=== PATIENT | male | born 1950 | race Caucasian/White ===

== ENCOUNTER 2016-04-06 14:20 | Emergency (ER) | payer OTHER, MEDICARE ==
[~2016-04-06] VITALS: Ht 182.9 cm; Wt 90.7 kg
[~2016-04-06 14:20] MED LIST: A/B OTIC 54 MG/15 ML AD; ASPIRIN EC81 M1 PO; ATORVASTATIN CA40 MG PO; AUGMENTIN 875875 MG PO; BENTYL10 M1 PO; BENTYL20 M1 PO; BUFFERIN LOW DO81 MG PO; CARAFATE 1GM1000 MG PO; CARAFATE1 G1 PO; CARAFATE1 GM/10 M1 PO; CIPRODEX 0.3%-7.5 ML OTIC; DEXAMETHAS0.5 MG/52 AD; DONNATAL TABL16.2 MG PO; FLONASE120 SPRAY/ NASB; GI COCKTAIL PO; GLYBURIDE5 M1 PO; GLYBURIDE5 MG PO; HYDROCODON-ACE1 EAC3 PO; HYDROCODONE/ACE1 TA1 PO; LEVSIN/SL0.125 MG SL; LEVSIN0.125 M1 PO; LIDOCAINE HCL PO; LIPITOR20 M2 PO; LIPITOR40 M1 PO; LISINOPRIL40 M1 PO; MAALOX PO; METOPROLOL SUCC50 M2 PO; NEURONTIN100 M1 PO; OMEPRAZOLE40 M1 PO; OMEPRAZOLE40 MG PO; OXYCODONE5 M1 PO; OXYCODONE5 MG PO; PLAVIX 75MG TAB75 MG PO; PLAVIX75 M1 PO; PRINIVIL40 MG PO; REGLAN10 MG PO; TOPROL XL 25MG25 MG PO; TOPROL XL 50MG50 MG PO; TOPROL XL25 M1 PO; ZANTAC 150MG150 MG PO; ZANTAC150 M1 PO; [UNRECOGNIZED DRUG - OTHER] PO; lisinipril PO
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
[2016-04-06 15:02] LABS: ABSOLUTE BASOPHIL COUNT 0 /CUMM (0.0-0.2); ABSOLUTE EOSINOPHIL COUNT 0 /CUMM (0.0-0.7); ABSOLUTE GRANULOCYTE CT 3.5 /CUMM (1.4-6.5); ABSOLUTE LYMPH COUNT 1.6 /CUMM (1.2-3.4); ABSOLUTE MONOCYTE COUNT 0.6 /CUMM (0.10-0.60); BASOPHIL % 0.5 % (0.0-2.0); EOSINOPHIL % 0.9 % (0-5); GRANULOCYTE % 60.9 % (42.2-75.2); HEMATOCRIT 42.4 % (42-52); MEAN CORPUSCULAR HGB 29.4 PG (27.0-31.0); MEAN CORPUSCULAR HGB CONC 34.1 G/DL (33.0-37.0); MEAN CORPUSCULAR VOLUME 86.1 FL (80.0-94.0); MEAN PLATELET VOLUME 8.5 FL (7.4-10.4); PLATELET COUNT 139 /CUMM (130-400); RBC DISTRIBUTION WIDTH 14.4 % (11.5-14.5); RED BLOOD CELL CT 4.92 /CUMM (4.70-6.10); WHITE BLOOD CELL COUNT 5.7 /CUMM (4.8-10.8)
--- NOTE | 2016-04-06 15:13 | RADIOLOGY REPORT ---
EXAMINATION: XR ABDOMEN MULTIPLE VIEWS CLINICAL INDICATION: Abdominal pain. Shortness of breath. COMPARISON: CT of the abdomen and pelvis on 11/25/2015. TECHNIQUE: AP supine and erect views of the abdomen. FINDINGS: There is no evidence of free air or obstruction. Air is seen throughout a nondistended colon. Scattered air is seen in the small intestine. The gallbladder has been surgically removed. Arterial vascular calcifications are present in the pelvis. IMPRESSION: No evidence of obstruction or free air.
[2016-04-06] MEDS ORDERED: BENTYL10 M1 PO (16:47)
[2016-04-06 16:56] VITALS: BP 156/85
== END 2016-04-06 17:20 ==
LOC: ERH 14:20
PROVIDERS: Physician Assistant Medical
DX: R10.84 Generalized abdominal pain (principal)
CPT/HCPCS: 74020; 93005; 93010; 96374; 96375; J2405

== ENCOUNTER 2016-05-12 07:14 | Emergency (ER) | payer OTHER, MEDICARE ==
[~2016-05-12] VITALS: Ht 182.9 cm; Wt 90.7 kg
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
[2016-05-12 09:09] LABS: ABSOLUTE BASOPHIL COUNT 0 /CUMM (0.0-0.2); ABSOLUTE EOSINOPHIL COUNT 0.1 /CUMM (0.0-0.7); ABSOLUTE LYMPH COUNT 1.3 /CUMM (1.2-3.4); ABSOLUTE MONOCYTE COUNT 0.4 /CUMM (0.10-0.60); BASOPHIL % 0.4 % (0.0-2.0); EOSINOPHIL % 1.5 % (0-5); GRANULOCYTE % 62.9 % (42.2-75.2); HEMATOCRIT 41.5 % (42-52); MEAN CORPUSCULAR HGB 29.5 PG (27.0-31.0); MEAN CORPUSCULAR HGB CONC 34.5 G/DL (33.0-37.0); MEAN CORPUSCULAR VOLUME 85.5 FL (80.0-94.0); MEAN PLATELET VOLUME 8.9 FL (7.4-10.4); PLATELET COUNT 128 /CUMM (130-400); RBC DISTRIBUTION WIDTH 13.5 % (11.5-14.5); RED BLOOD CELL CT 4.86 /CUMM (4.70-6.10); WHITE BLOOD CELL COUNT 4.8 /CUMM (4.8-10.8)
--- NOTE | 2016-05-12 10:28 | CT SCAN REPORT ---
EXAMINATION: CT ABDOMEN AND PELVIS WITH CONTRAST CLINICAL INFORMATION: Abdominal pain. COMPARISON: 11/25/2015 and 09/10/2015, 05/05/2015, 08/19/2014, 12/31/2013, 11/23/2013, 02/15/2012, and 07/26/2010. TECHNIQUE: Multidetector volumetric imaging was performed of the abdomen and pelvis before and after the IV administration of 95 mL of Omnipaque 300 intravenous contrast. Sagittal and coronal reformatted images were obtained on the technologist's workstation. DLP: 775.08 mGy-cm. FINDINGS: LUNG BASES: The visualized lung bases are unremarkable. LIVER, GALLBLADDER, AND BILIARY TREE: The liver is normal in size, shape, and attenuation. No focal hepatic lesion or biliary ductal dilatation is present. Patient status post cholecystectomy. PANCREAS: Unremarkable. SPLEEN: Unremarkable. ADRENAL GLANDS: Unremarkable. KIDNEYS AND URETERS: The right kidney is normal in size, shape, and attenuation. No hydronephrosis, hydroureter, or calculi seen. No perinephric stranding. Left kidney is absent. BLADDER: Unremarkable. GASTROINTESTINAL TRACT: Diverticular changes are present in the colon without evidence of diverticulitis. The appendix is normal. There is no evidence of bowel obstruction. ABDOMINAL WALL: No significant hernia is appreciated. LYMPH NODES: Normal. VASCULAR: Unremarkable. PELVIC VISCERA: Prostate and seminal vesicles are unremarkable. OSSEOUS STRUCTURES: Degenerative changes noted in the lower thoracic spine as well as at L5-S1. IMPRESSION: Sigmoid diverticulae are noted. There has been no significant interval change since the last [address] scans dating back to 2010.
[2016-05-12 12:01] VITALS: BP 178/90
== END 2016-05-12 12:12 ==
LOC: ERH 07:14
PROVIDERS: Emergency Medicine
DX: R10.33 Periumbilical pain (principal)
CPT/HCPCS: 74177; 93005; 93010; 96360; 96361

== ENCOUNTER 2016-07-06 08:56 | Emergency (ER) | payer OTHER, MEDICARE ==
[~2016-07-06] VITALS: Ht 182.9 cm; Wt 90.7 kg
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
[2016-07-06 09:55] LABS: ABSOLUTE BASOPHIL COUNT 0 /CUMM (0.0-0.2); ABSOLUTE EOSINOPHIL COUNT 0.2 /CUMM (0.0-0.7); ABSOLUTE GRANULOCYTE CT 3.2 /CUMM (1.4-6.5); ABSOLUTE LYMPH COUNT 1.1 /CUMM (1.2-3.4); ABSOLUTE MONOCYTE COUNT 0.4 /CUMM (0.10-0.60); BASOPHIL % 0.4 % (0.0-2.0); EOSINOPHIL % 3.1 % (0-5); GRANULOCYTE % 66.5 % (42.2-75.2); HEMATOCRIT 43.2 % (42-52); MEAN CORPUSCULAR HGB 28.4 PG (27.0-31.0); MEAN CORPUSCULAR HGB CONC 33.1 G/DL (33.0-37.0); MEAN CORPUSCULAR VOLUME 85.9 FL (80.0-94.0); MEAN PLATELET VOLUME 8.5 FL (7.4-10.4); PLATELET COUNT 140 /CUMM (130-400); RED BLOOD CELL CT 5.03 /CUMM (4.70-6.10); WHITE BLOOD CELL COUNT 4.9 /CUMM (4.8-10.8)
--- NOTE | 2016-07-06 10:34 | RADIOLOGY REPORT ---
EXAMINATION: XR CERVICAL SPINE CLINICAL INFORMATION: Right-sided neck pain. COMPARISON: None TECHNIQUE: Cervical spine, 4 views FINDINGS: The cervical vertebra have normal height and alignment. No fracture, subluxation or prevertebral soft tissue swelling. The dens is intact. At C4-C5, anterior traction osteophyte formation is noted and there is minimal narrowing of disc space. At C5-C6 and C6-C7, there is moderate disc space narrowing and traction osteophyte formation. The uncovertebral joints are hypertrophied at C5-C6. The visualized lung apices are normal. IMPRESSION: 1. Moderate disc degenerative change at C5-C6 and C6-C7. 2. There is bilateral uncovertebral joint hypertrophy at C5-C6. 3. No acute fracture or malalignment.
[2016-07-06 10:57] VITALS: BP 164/86
[2016-07-06] MEDS ORDERED: CYCLOBENZAPRINE10 M1 PO (11:02)
== END 2016-07-06 11:07 ==
LOC: ERH 08:56
PROVIDERS: Physician Assistant Medical
DX: S16.1XXA Strain of muscle, fascia and tendon at neck level, initial encounter (principal)
CPT/HCPCS: 72040; 93005; 93010

== ENCOUNTER 2016-08-08 09:24 | Emergency (ER) | payer OTHER, MEDICARE ==
[~2016-08-08 09:24] MED LIST changes: +CYCLOBENZAPRINE10 M1 PO
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
--- NOTE | 2016-08-08 10:56 | RADIOLOGY REPORT ---
EXAMINATION: XR ABDOMEN WITH PA CHEST CLINICAL INDICATION: Diffuse abdominal pain. Evaluate bowel obstruction. COMPARISON: CT abdomen pelvis from 05/12/2016 TECHNIQUE: Chest, AP view Abdomen, 2 views FINDINGS: CHEST: Lungs are well expanded and clear. No pleural effusion. Cardiac silhouette is normal in size. The descending thoracic aorta is tortuous. The visualized bones are intact. No pneumoperitoneum. ABDOMEN: Cholecystectomy clips in the right upper quadrant. Within the left mid and upper abdomen, small bowel is dilated up to 3.8 cm and there are scattered air-fluid levels within small bowel. No evidence of pneumatosis intestinalis or pneumoperitoneum. Bowel gas is seen within the colon to level the rectum. Peripheral vascular calcifications are seen. No suspicious bone lesions. IMPRESSION: 1. No acute cardiopulmonary disease. 2. Findings suggestive of moderate, likely incomplete small bowel obstruction. No pneumoperitoneum.
[2016-08-08 11:12] LABS: ABSOLUTE BASOPHIL COUNT 0 /CUMM (0.0-0.2); ABSOLUTE EOSINOPHIL COUNT 0.1 /CUMM (0.0-0.7); ABSOLUTE GRANULOCYTE CT 3.5 /CUMM (1.4-6.5); ABSOLUTE LYMPH COUNT 1.4 /CUMM (1.2-3.4); ABSOLUTE MONOCYTE COUNT 0.5 /CUMM (0.10-0.60); BASOPHIL % 0.3 % (0.0-2.0); EOSINOPHIL % 1.1 % (0-5); GRANULOCYTE % 64.3 % (42.2-75.2); HEMATOCRIT 42.9 % (42-52); MEAN CORPUSCULAR HGB 28.9 PG (27.0-31.0); MEAN CORPUSCULAR HGB CONC 33.5 G/DL (33.0-37.0); MEAN CORPUSCULAR VOLUME 86.3 FL (80.0-94.0); MEAN PLATELET VOLUME 9.2 FL (7.4-10.4); PLATELET COUNT 134 /CUMM (130-400); RBC DISTRIBUTION WIDTH 14.1 % (11.5-14.5); RED BLOOD CELL CT 4.97 /CUMM (4.70-6.10); WHITE BLOOD CELL COUNT 5.4 /CUMM (4.8-10.8)
--- NOTE | 2016-08-08 13:31 | CT SCAN REPORT ---
EXAMINATION: CT ABDOMEN AND PELVIS WITHOUT CONTRAST CLINICAL INFORMATION: Abdominal pain. Abnormal XR. Question presence of small bowel obstruction. COMPARISON: Abdomen CT from 05/12/2016. TECHNIQUE: Multidetector volumetric imaging was performed from the superior aspect of the liver through the pubic symphysis. Sagittal and coronal reformatted images were obtained on the technologist's workstation. DLP: 554 mGy-cm FINDINGS: LUNG BASES: No acute findings in the lung bases compared to 05/12/2016. Coronary arteries are calcified. There appears to be a stent within the calcified left anterior descending coronary artery. No pericardial or pleural effusion. LIVER, GALLBLADDER, AND BILIARY TREE: Liver has normal size, contour and attenuation. Gallbladder surgically absent. No intrahepatic bile duct dilatation. No perihepatic fluid. PANCREAS: Unremarkable. SPLEEN: Unremarkable. ADRENAL GLANDS: Unremarkable. KIDNEYS AND URETERS: Left kidney is absent. The right kidney has normal size, cortical thickness and attenuation. No nephrolithiasis or hydroureteronephrosis. BLADDER: Unremarkable. GASTROINTESTINAL TRACT: Stomach is unremarkable. Within the left abdomen, small bowel is mildly distended with fluid and gas and measures up to 3 cm diameter. The mid and distal small bowel appear collapsed to level of the ileocecal junction. There is no focal transition point identified on these images acquired without enteric contrast. No inflammation in the mesentery. No evidence of pneumatosis intestinalis or pneumoperitoneum. Mild diverticulosis of the sigmoid colon without diverticulitis. The appendix is normal. ABDOMINAL WALL: No abdominal wall mass or hernia. LYMPH NODES: No pathologic sized lymph nodes within the abdomen or pelvis. VASCULAR: Atherosclerotic calcification of the abdominal aorta without aneurysm. No retroperitoneal hematoma. PELVIC VISCERA: Prostate gland is normal in size. No pelvic free fluid. No iliac lymphadenopathy. OSSEOUS STRUCTURES: No aggressive bone lesions. Degenerative disc disease at T10-T11 and L5-S1. IMPRESSION: 1. Within the left abdomen, small bowel is mildly distended with fluid and gas and measures up to 3 cm diameter. The mid and distal small bowel are decompressed. This is suggestive of a relatively early or mild small bowel obstruction. A well-defined, focal transition point is not detected. There is mild sigmoid colon diverticulosis without diverticulitis. Appendix is normal. 2. The solitary right kidney is normal. No urolithiasis or urinary tract obstruction..
[2016-08-08] MEDS ORDERED: LEVSIN0.125 M1 PO (15:20)
[2016-08-08 15:22] VITALS: BP 162/72
== END 2016-08-08 15:26 ==
LOC: ERH 09:24
PROVIDERS: Emergency Medicine
DX: K52.9 Noninfective gastroenteritis and colitis, unspecified (principal)
CPT/HCPCS: 74022; 74176; 93005; 93010

== ENCOUNTER 2016-09-05 09:05 | Emergency (ER) | payer OTHER, MEDICARE ==
[~2016-09-05] VITALS: Ht 182.9 cm; Wt 90.7 kg
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
[2016-09-05 09:58] LABS: ABSOLUTE BASOPHIL COUNT 0 /CUMM (0.0-0.2); ABSOLUTE EOSINOPHIL COUNT 0.1 /CUMM (0.0-0.7); ABSOLUTE GRANULOCYTE CT 3.1 /CUMM (1.4-6.5); ABSOLUTE MONOCYTE COUNT 0.4 /CUMM (0.10-0.60); BASOPHIL % 0.3 % (0.0-2.0); EOSINOPHIL % 2.4 % (0-5); GRANULOCYTE % 67.2 % (42.2-75.2); HEMATOCRIT 41.8 % (42-52); MEAN CORPUSCULAR HGB 28.6 PG (27.0-31.0); MEAN CORPUSCULAR HGB CONC 33.1 G/DL (33.0-37.0); MEAN CORPUSCULAR VOLUME 86.4 FL (80.0-94.0); MEAN PLATELET VOLUME 8.6 FL (7.4-10.4); PLATELET COUNT 140 /CUMM (130-400); RBC DISTRIBUTION WIDTH 14.5 % (11.5-14.5); RED BLOOD CELL CT 4.84 /CUMM (4.70-6.10); WHITE BLOOD CELL COUNT 4.7 /CUMM (4.8-10.8)
--- NOTE | 2016-09-05 10:42 | RADIOLOGY REPORT ---
EXAMINATION: XR ABDOMEN MULTIPLE VIEWS CLINICAL INDICATION: Abdominal pain with lack of bowel movement in 3 days. Evaluate for constipation or small bowel obstruction. COMPARISON: CT images of abdomen pelvis from 08/08/2016 TECHNIQUE: Abdomen radiographs, 2 views FINDINGS: Lung bases are unremarkable. Cholecystectomy clips in the right upper quadrant of the abdomen. Small bowel is mildly dilated and has scattered air-fluid levels; this is similar in appearance compared to the findings on the abdomen CT of 08/08/2016. The pattern suggests possibility of mild small bowel obstruction. No pneumoperitoneum. Moderate amount of stool is present within the colon. There is gas identified within the sigmoid colon. No acute osseous abnormality. IMPRESSION: Bowel gas pattern is abnormal. The findings are similar to those observed on the recent abdomen CT of 08/08/2016 and suggest possibility of a mild small bowel obstruction.
--- NOTE | 2016-09-05 14:24 | CT SCAN REPORT ---
EXAMINATION: CT ABDOMEN AND PELVIS WITH CONTRAST CLINICAL INFORMATION: Abdominal pain for months. Recent imaging suspicious for partial small bowel destruction. COMPARISON: KUB 09/05/2016, CT abdomen and pelvis without contrast 08/08/2016, CT abdomen and pelvis with contrast 05/12/2016. TECHNIQUE: Multidetector volumetric imaging was performed of the abdomen and pelvis using oral contrast and 95 mL Optiray 320 intravenous contrast. Sagittal and coronal reformatted images were obtained on the technologist's workstation. DLP: 758 mGy-cm FINDINGS: LUNG BASES: No airspace consolidation or effusion. LIVER, GALLBLADDER, AND BILIARY TREE: The liver is normal in size and smooth in contour. There is mild hepatic steatosis. No focal hepatic parenchymal lesion or intrahepatic biliary ductal dilatation. Prior cholecystectomy. Common duct unremarkable. PANCREAS: Borderline atrophic. No pancreatic ductal distention or peripancreatic inflammatory changes. SPLEEN: Normal. Incidental two subcentimeter splenules left upper quadrant. ADRENAL GLANDS: Mild fullness right adrenal stable. No adrenal nodule. Left adrenal unremarkable. KIDNEYS AND URETERS: Left kidney absent. Right kidney normal in size and smooth in contour. No hydronephrosis, hydroureter, perinephric stranding, or right urinary tract calculi. BLADDER: Unremarkable. GASTROINTESTINAL TRACT: There is no bowel obstruction or inflammatory changes in the bowel or mesentery. There is no small bowel dilatation or wall thickening. The appendix is normal. No pneumatosis or free air. No ascites or fluid collection ABDOMINAL WALL: No significant hernia is appreciated. LYMPH NODES: No lymphadenopathy. VASCULAR: Coronary stent. PELVIC VISCERA: Unremarkable. OSSEOUS STRUCTURES: Unremarkable. IMPRESSION: 1. No bowel obstruction or inflammatory changes in the abdomen or pelvis. Normal appendix. 2. Mild hepatic steatosis. Prior cholecystectomy. No ductal dilatation. 3. Left kidney absent. Right urinary tract unremarkable.
[2016-09-05 14:34] VITALS: BP 158/90
[2016-09-05] MEDS ORDERED: LEVSIN0.125 M1 PO (14:37)
== END 2016-09-05 14:58 ==
LOC: ERH 09:05
PROVIDERS: Physician Assistant
DX: I10 Essential (primary) hypertension (principal); R10.84 Generalized abdominal pain
CPT/HCPCS: 74020; 74177; 81001; 96374

== ENCOUNTER 2017-05-23 12:30 | Emergency (ER) | payer OTHER, MEDICARE ==
[~2017-05-23] VITALS: Ht 182.9 cm; Wt 90.7 kg
[~2017-05-23 12:30] MED LIST changes: +LIDOCAINE HCL V15 ML PO; +MOBIC15 M1 PO; +OXYCODONE HCL15 M1 PO; +PEPCID20 M1 PO; +ZOFRAN ODT4 M1 SL
[2017-05-23 13:02] VITALS: BP 149/78
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
[2017-05-23 15:00] LABS: ABSOLUTE BASOPHIL COUNT 0 /CUMM (0.0-0.2); ABSOLUTE EOSINOPHIL COUNT 0.1 /CUMM (0.0-0.7); ABSOLUTE GRANULOCYTE CT 2.8 /CUMM (1.4-6.5); ABSOLUTE LYMPH COUNT 2.1 /CUMM (1.2-3.4); ABSOLUTE MONOCYTE COUNT 0.6 /CUMM (0.10-0.60); BASOPHIL % 0.5 % (0.0-2.0); EOSINOPHIL % 1.5 % (0-5); GRANULOCYTE % 50.3 % (42.2-75.2); HEMATOCRIT 37.8 % (42-52); MEAN CORPUSCULAR HGB 24.9 PG (27.0-31.0); MEAN CORPUSCULAR HGB CONC 32.4 G/DL (33.0-37.0); MEAN CORPUSCULAR VOLUME 76.8 FL (80.0-94.0); PLATELET COUNT 169 /CUMM (130-400); RBC DISTRIBUTION WIDTH 16.5 % (11.5-14.5); RED BLOOD CELL CT 4.92 /CUMM (4.70-6.10); WHITE BLOOD CELL COUNT 5.6 /CUMM (4.8-10.8)
[2017-05-23] MEDS ORDERED: DICYCLOMINE HCL10 M1 PO (16:12)
[2017-05-23] MEDS ORDERED: MELOXICAM15 M1 PO (16:12)
== END 2017-05-23 16:33 ==
LOC: ERH 12:30
PROVIDERS: Physician Assistant
DX: R10.9 Unspecified abdominal pain (principal)
CPT/HCPCS: 81001; 93005; 93010

== ENCOUNTER 2017-09-05 11:41 | Emergency (ER) | payer OTHER, MEDICARE ==
[~2017-09-05] VITALS: Ht 182.9 cm; Wt 90.7 kg
[~2017-09-05 11:41] MED LIST changes: +DICYCLOMINE HCL10 M1 PO; +MELOXICAM15 M1 PO
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
[2017-09-05 12:13] LABS: ABSOLUTE BASOPHIL COUNT 0 /CUMM (0.0-0.2); ABSOLUTE EOSINOPHIL COUNT 0.1 /CUMM (0.0-0.7); ABSOLUTE GRANULOCYTE CT 3.1 /CUMM (1.4-6.5); ABSOLUTE LYMPH COUNT 1.7 /CUMM (1.2-3.4); ABSOLUTE MONOCYTE COUNT 0.4 /CUMM (0.10-0.60); BASOPHIL % 0.5 % (0.0-2.0); HEMATOCRIT 40.3 % (42-52); MEAN CORPUSCULAR HGB 26.6 PG (27.0-31.0); MEAN CORPUSCULAR HGB CONC 33.3 G/DL (33.0-37.0); MEAN CORPUSCULAR VOLUME 80.1 FL (80.0-94.0); MEAN PLATELET VOLUME 9.2 FL (7.4-10.4); PLATELET COUNT 145 /CUMM (130-400); RBC DISTRIBUTION WIDTH 16.2 % (11.5-14.5); RED BLOOD CELL CT 5.03 /CUMM (4.70-6.10); WHITE BLOOD CELL COUNT 5.4 /CUMM (4.8-10.8)
--- NOTE | 2017-09-05 14:34 | RADIOLOGY REPORT ---
EXAMINATION: XR ABDOMEN CLINICAL INDICATION: History of small bowel resection with periumbilical pain. COMPARISON: Abdominal radiograph 09/05/2016. TECHNIQUE: AP view of the abdomen. FINDINGS: There are mildly air distended loops of small and large bowel. A small amount of air is seen in the rectum. This bowel gas pattern is most consistent with ileus. Surgical clips are noted in the right upper and right mid abdomen. The visualized lung bases are clear. No acute osseous finding. IMPRESSION: Bowel gas pattern most consistent with ileus.
[2017-09-05 15:52] VITALS: BP 143/69
[2017-09-05] MEDS ORDERED: DULCOLAX5 M1 PO (16:11)
== END 2017-09-05 16:40 ==
LOC: ERH 11:41
PROVIDERS: Internal Medicine
DX: R10.33 Periumbilical pain (principal); R19.7 Diarrhea, unspecified
CPT/HCPCS: 74018; 93005; 93010

== ENCOUNTER 2017-09-29 14:12 | Emergency (ER) | payer OTHER, MEDICARE ==
[~2017-09-29] VITALS: Ht 182.9 cm; Wt 90.7 kg
[~2017-09-29 14:12] MED LIST changes: +DULCOLAX5 M1 PO
[2017-09-29 14:41] LABS: ABSOLUTE BASOPHIL COUNT 0 /CUMM (0.0-0.2); ABSOLUTE EOSINOPHIL COUNT 0.1 /CUMM (0.0-0.7); ABSOLUTE GRANULOCYTE CT 3.6 /CUMM (1.4-6.5); ABSOLUTE LYMPH COUNT 2.8 /CUMM (1.2-3.4); ABSOLUTE MONOCYTE COUNT 0.8 /CUMM (0.10-0.60); BASOPHIL % 0.4 % (0.0-2.0); EOSINOPHIL % 1.2 % (0-5); GRANULOCYTE % 49.3 % (42.2-75.2); MEAN CORPUSCULAR HGB 26.8 PG (27.0-31.0); MEAN CORPUSCULAR HGB CONC 33.5 G/DL (33.0-37.0); MEAN CORPUSCULAR VOLUME 80.1 FL (80.0-94.0); MEAN PLATELET VOLUME 9.6 FL (7.4-10.4); PLATELET COUNT 147 /CUMM (130-400); RBC DISTRIBUTION WIDTH 15.6 % (11.5-14.5); RED BLOOD CELL CT 5.25 /CUMM (4.70-6.10); WHITE BLOOD CELL COUNT 7.2 /CUMM (4.8-10.8)
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
[2017-09-29] MEDS ORDERED: DICYCLOMINE HCL10 M1 PO (16:34)
[2017-09-29 16:51] VITALS: BP 144/78
== END 2017-09-29 16:51 ==
LOC: ERH 14:12
PROVIDERS: Physician Assistant Medical
DX: R10.84 Generalized abdominal pain (principal); R19.7 Diarrhea, unspecified; I10 Essential (primary) hypertension; Z72.0 Tobacco use
CPT/HCPCS: 81001; 93005; 93010

== ENCOUNTER 2017-10-02 11:48 | Emergency (ER) | payer OTHER, MEDICARE ==
[~2017-10-02] VITALS: Ht 182.9 cm; Wt 90.7 kg
[2017-10-02] MEDS ORDERED: MIRALAX17 G1 PO (12:43)
[2017-10-02 12:51] LABS: ABSOLUTE BASOPHIL COUNT 0 /CUMM (0.0-0.2); ABSOLUTE EOSINOPHIL COUNT 0 /CUMM (0.0-0.7); ABSOLUTE GRANULOCYTE CT 3.7 /CUMM (1.4-6.5); ABSOLUTE LYMPH COUNT 2.2 /CUMM (1.2-3.4); ABSOLUTE MONOCYTE COUNT 0.5 /CUMM (0.10-0.60); BASOPHIL % 0.5 % (0.0-2.0); EOSINOPHIL % 0.6 % (0-5); GRANULOCYTE % 57.9 % (42.2-75.2); HEMATOCRIT 41.8 % (42-52); MEAN CORPUSCULAR HGB 26.9 PG (27.0-31.0); MEAN CORPUSCULAR HGB CONC 33.2 G/DL (33.0-37.0); MEAN CORPUSCULAR VOLUME 80.9 FL (80.0-94.0); MEAN PLATELET VOLUME 9.1 FL (7.4-10.4); PLATELET COUNT 143 /CUMM (130-400); RBC DISTRIBUTION WIDTH 15.5 % (11.5-14.5); RED BLOOD CELL CT 5.17 /CUMM (4.70-6.10); WHITE BLOOD CELL COUNT 6.5 /CUMM (4.8-10.8)
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
--- NOTE | 2017-10-02 16:04 | CT SCAN REPORT ---
EXAMINATION: CT ABDOMEN AND PELVIS WITH CONTRAST CLINICAL INFORMATION: Abdominal pain. History of small bowel cancer. Rule out obstruction. COMPARISON: 08/07/2017 TECHNIQUE: Multidetector volumetric imaging was performed of the abdomen and pelvis following IV administration of 90 mL of Optiray 320 intravenous contrast. Sagittal and coronal reformatted images were obtained on the technologist's workstation. DLP: 459 mGy-cm FINDINGS: LUNG BASES: Minimal dependent atelectasis. Calcifications are present at the mitral valve and at the coronary arteries. LIVER, GALLBLADDER, AND BILIARY TREE: The liver is normal in size, shape, and attenuation. No focal hepatic lesion or biliary ductal dilatation is present. Gallbladder surgically absent. PANCREAS: Unremarkable. SPLEEN: Unremarkable. ADRENAL GLANDS: Unremarkable. KIDNEYS AND URETERS: Left kidney is absent. The right kidney is normal in size, shape, and attenuation. No hydronephrosis, hydroureter, or calculi seen. No perinephric stranding. BLADDER: Unremarkable. GASTROINTESTINAL TRACT: Stomach is decompressed. As previously seen, there are post surgical changes throughout the small bowel and jejunojejunal anastomosis in the left upper quadrant as well as multiple surgical clips and chain jeana around the duodenum. A few segments of small bowel in the anterior abdomen are borderline dilated (3.4 cm in diameter), though these occur at the anastomosis and are likely physiologic in the absence of significant surrounding small bowel distention. No intraperitoneal free fluid or free air. Colon is normal in caliber. Mild colonic diverticulosis. No evidence of acute diverticulitis. ABDOMINAL WALL: No significant hernia is appreciated. LYMPH NODES: As seen on image 30/97 of series 2, there is a 0.7 cm (short axis) mesenteric node in the region of prior surgery which is toward the upper limits of normal in size. No pathologic adenopathy. Lymph nodes are unchanged in size as compared to prior. No intraperitoneal adenopathy. VASCULAR: Calcific atherosclerosis is present in the abdominal aorta and iliac arteries. Portal vein is patent. PELVIC VISCERA: The prostate and seminal vesicles are unremarkable. OSSEOUS STRUCTURES: Multilevel degenerative disc disease is present in the lumbar spine. No acute findings. There is mild osteoarthritis in the hips. IMPRESSION: 1. No new or acute imaging findings in the abdomen is compared to prior study from 08/07/2017. Short segments of minimally dilated small bowel in the ventral abdomen adjacent to anastomotic jeana are relatively focal, unchanged from prior, and favored to be related to the normal postoperative appearance as opposed to a very mild obstruction. No additional areas of potential obstruction are identified. 2. Mild colonic diverticulosis. No acute diverticulitis.
[2017-10-02 17:56] VITALS: BP 152/70
== END 2017-10-02 17:55 ==
LOC: ERH 11:48
PROVIDERS: Emergency Medicine
DX: K56.7 Ileus, unspecified (principal); R10.84 Generalized abdominal pain; I10 Essential (primary) hypertension
CPT/HCPCS: 74177; 81003; 96361; 96374; 96375; J0131; J2405